=== PATIENT | female | born 1990 | race Caucasian/White ===

== ENCOUNTER 2021-04-13 13:55 | Emergency (ER) | payer OTHER, SELFPAY ==
[2021-04-13 14:21] VITALS: BP 133/70; PULSE 80; RESP 16; TEMP 36.9; O2SAT 99; BMI 24.3
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
--- NOTE | 2021-04-13 15:10 | PC.NURSE ---
[facility] CALLED BY THIS RN. CLINIC IS CLOSED AND NO WAY TO VERIFY DOSE. PT HAS PRESCRIPTION BOTTLE WITH HER FROM CLINIC VERIFYING 95 MG DAILY DOSE. ELA SINCLAIR SPOKE WITH PHARMACY REGARDING ISSUE WITH VERIFYING DOSE.
[2021-04-13] MEDS: methADONE HCl 20 MG/2 ML ORAL.CONC 95 MG PO (15:25)
== END 2021-04-13 15:28 | disposition home or self-care (01) ==
PROVIDERS: Emergency Provider Emergency Medicine
DX: Z76.0 Encounter for issue of repeat prescription (principal); Z79.899 Other long term (current) drug therapy
CPT/HCPCS: 99283

== ENCOUNTER 2021-05-17 20:45 | Emergency (ER) | payer OTHER, SELFPAY ==
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
== END 2021-05-17 21:55 | disposition left against medical advice (07) ==
LOC: HO.ED 21:56
PROVIDERS: Emergency Provider Emergency Medicine
DX: Z04.9 Encounter for examination and observation for unspecified reason (principal)